=== PATIENT | female | born 1960 | race American Indian/Alaskan Native ===

== ENCOUNTER 2016-09-04 06:50 | Day surgery (SDC) | payer MEDICAID ==
[~2016-09-04 06:50] MED LIST: TETRACAINE 0.5% OS PRN
[2016-09-04] MEDS: VIGAMOX OS SCH ×3 (07:40→07:50)
[2016-09-04] MEDS: AK-Dilate OS SCH ×3 (07:40→07:50)
[2016-09-04] MEDS: MYDRIACYL OS SCH ×3 (07:40→07:50)
--- NOTE | 2016-09-04 08:16 | Anesthesia Day of Surgery ---
Anesthesia Day of Surgery - Day of Surgery Patient Examined: Yes Patient H&P Reviewed: Yes Patient is NPO: Yes
--- NOTE | 2016-09-04 08:19 | Anesthesia Consultation ---
Anesthesia Consult and Med Hx Date of service: 09/04/16 - Airway Anesthetic Teeth Evaluation: Poor ROM Head & Neck: Adequate Mental/Hyoid Distance: Adequate Mallampati Class: Class II Intubation Access Assessment: Probably Good - Pulmonary Exam CTA: Yes - Cardiac Exam Cardiac Exam: RRR - Pre-Operative Health Status ASA Pre-Surgery Classification: ASA3 Proposed Anesthetic Plan: MAC - Pulmonary Hx Smoking: No Hx Asthma: No Hx Respiratory Symptoms: Yes (hx of bronchitis, inhaler this AM) Hx Pneumonia: No Hx Sleep Apnea: Yes (waiting for CPAP) - Cardiovascular System Hx Hypertension: Yes (FOR 14 YRS) Hx Heart Attack/AMI: No - Central Nervous System Hx Seizures: No CVA: No Hx Psychiatric Problems: No - Gastrointestinal Hx Gastroesophageal Reflux Disease: Yes (no meds) - Endocrine Hx Renal Disease: No Hx Liver Disease: No Hx Non-Insulin Dependent Diabetes: 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
[2016-09-04] MEDS ORDERED: SUBLIMAZE ONE (08:22)
[2016-09-04] MEDS ORDERED: VERSED ONE (08:22)
[2016-09-04] MEDS ORDERED: WATER FOR IRRIG STERILE IR ONE (08:25)
--- NOTE | 2016-09-04 08:52 | Operative Report ---
Operative Report Operative Report: PATIENT'S NAME: DATE OF : DATE OF SURGERY: 09/04/2016 PREOPERATIVE DIAGNOSIS: Cataract left eye POSTOPERATIVE DIAGNOSIS: Same OPERATIVE PROCEDURE: Phacoemulsification with intraocular lens implantation, left eye SURGEON: Krista Arredondo M.D. MOLDER FITTING SURGEON: Jane Lens: [id number] 27.0 D ANESTHESIA: Monitored anesthesia care in combination with topical and intracameral anesthesia because of the established specific risk of reflux, arrhythmias, or anxiety attacks associated with ocular manipulation, as well as the difficulty of the rn stars to manage such potentially catastrophic events while simultaneously attempting to complete the surgical procedure and was deemed necessary for the patient's safety to have an Slot Machine Repairer present during the procedure whenever possible. An Slot Machine Repairer was utilized to regulate the intravenous sedation of the patient so the patient was cooperative yet not asleep in order for the patient to successfully maintain fixation of the eye on the operating light of the microscope. COMPLICATIONS: No surgical complications No blood loss. ALLERGIES: Acetaminophen and oxycodone PROGNOSIS: Excellent INDICATIONS FOR SURGERY: The patient is undergoing surgery in the hopes of eliminating or improving these visual difficulties. PROCEDURE: After arriving at the surgery center, the patient was given topical anesthetic and dilating drops, as noted in the record. The patient was then taken into the operating room and given more anesthetic drops. The eyelids , lashes, and lid margins were scrubbed with Betadine solution, and the patient was draped. The Nurse Slot Machine Repairer administered IV sedation and monitored the patient during the procedure. The eye was then fixated with a 0.12, and a stab incision was made in the peripheral clear cornea into the anterior chamber. This was made on my left side. Viscoelastic was next used to fill the anterior chamber. The eye was once again fixated with the 0.12 forceps and a keratome was used make an incision in clear cornea peripherally on my right hand side temporally. The capsule forceps were used to open the central anterior capsule and then make a continuous round capsulotomy. Hydrodissection was carried out utilizing a cannula and balanced salt solution to delineate the cortical material from the capsule and the nucleus from the cortical material. The phaco tip was introduced into the eye and used to remove the anterior cortical material in the area of the capsulotomy. Then the phaco tip was buried into the nucleus, and a chopping instrument was introduced into the eye and used to provide countertraction in the nucleus between this instrument and the phaco tip fracturing the nucleus. This procedure was repeated multiple times, providing multiple small segments of the lens, and then the phaco tip was used to remove each of these segments. An I/A tip was then used to remove the remaining cortex. The anterior chamber was refilled with viscoelastic. An one-piece, acrylic intraocular lens was then placed into an inserting cartridge. The tip of the inserting cartridge was introduced into the keratome incision and into the anterior chamber. The implant was gently advanced through the cartridge and into the eye, where it unfolded, and both haptics were placed in the capsular bag, where it centered nicely and appeared to be well fixated. After placement of the intraocular lens, the I~and~A handpiece was placed back into the eye and used to remove the viscoelastic, including viscoelastic that was behind the optic of the intraocular lens. The anterior chamber was then filled with balanced salt solution, and hydration of the wound was used to cause swelling of the wound and more appropriate watertight closure. When the wound was found to be firm, the patient was asked to comment on how bright the light was. If there was no light perception at all or if the light was substantially dimmer than during the rest of the surgery, the amount of fluid in the eye was decompressed to lower the intraocular pressure until the patient could see the bright light again. This was done to avoid any damage or decreased blood flow to the optic nerve. MEDICATIONS APPLIED AT END OF SURGERY: One drop of Pred Forte and Vigamox The patient was given a shield to wear at night and was instructed not to rub or push on the eye. DISCHARGE SUMMARY: The patient was released in stable condition. The patient and those with the patient were given a written sheet of postoperative instructions and counseling on any abnormal laboratory studies. The patient is to see us tomorrow for follow-up in the office and is to call immediately for any difficulties. Krista Arredondo M.D. Date
--- NOTE | 2016-09-04 08:53 | Short Stay Summary ---
Short Stay Documentation Date of service: 09/04/16 - History H&P: obtained from office - Allergies and Medications Current Medications: Allergies acetaminophen [From Percocet] Allergy (Verified 09/02/16 13:49) CONFUSION oxycodone HCl [From Percocet] Allergy (Verified 09/02/16 13:49) CONFUSION Home Medications Medication Instructions Recorded Confirmed Last Taken Type Insulin Detemir [Levemir Flexpen] 9 units SUB-Q QAM 06/27/13 09/02/16 09/03/16 History Simvastatin 20 mg PO QHS 06/27/13 09/02/16 09/03/16 History amLODIPine [Norvasc] 10 mg PO QDAY 06/27/13 09/02/16 09/04/16 06:00 History Aspirin EC [Aspirin Enteric Coated 81 mg PO QDAY #30 tablet. 08/11/1509/03/16 Rx TAB] Gabapentin [Gralise] 300 mg PO BID 08/11/15 09/02/16 09/04/16 06:00 History Docusate Sodium [Colace] 100 mg PO QDAY 09/02/16 09/02/16 09/03/16 History Ferrous Sulfate [Feosol] 325 mg PO QDAY 09/02/16 09/02/16 09/03/16 History Furosemide [Lasix TAB] 40 mg PO QDAY 09/02/16 09/02/16 09/03/16 History Insulin Lispro [Humalog 100 3 units SQ TIDAC 09/02/16 09/02/16 09/03/16 History UNITS/ML Kwikpen] Losartan [Cozaar] 25 mg PO QDAY 09/02/16 09/02/16 09/04/16 06:00 History Potassium Chloride [K-Dur] 20 meq PO QDAY 09/02/16 09/02/16 09/03/16 History hydrALAZINE [Apresoline] 25 mg PO BID 09/02/16 09/02/16 09/04/16 06:00 History Active Medications Moxifloxacin HCl (Vigamox) 1 drops OS Q5MIN LENNOX Stop: 09/06/16 06:01 Last Admin: 09/04/16 07:50 Dose: 1 drops Phenylephrine HCl (Ak-Dilate) 1 drops OS Q5MIN LENNOX Stop: 09/06/16 06:01 Last Admin: 09/04/16 07:50 Dose: 1 drops Prednisolone Acetate (Pred Forte 1%) 1 drops OS QID LENNOX Tetracaine HCl (Tetracaine 0.5%) 1 drops OS Q5M PRN PRN Reason: Analgesia Last Admin: 09/04/16 07:40 Dose: 1 drops Tropicamide (Mydriacyl) 1 drops OS Q5MIN LENNOX Stop: 09/06/16 06:01 Last Admin: 09/04/16 07:50 Dose: 1 drops - Brief post op/procedure progress note Date of procedure: 09/04/16 Pre-op diagnosis: CATARACT LEFTE EYE Post-op diagnosis: same Procedure: Phacoemulsification with intraocular lens insertion left eye Anesthesia: MAC Surgeon: JERE HERNDON Estimated blood loss: none Pathology: none Condition: stable - Disposition Condition at discharge: Good - Discharge Diagnoses (1) Cataract Status: Resolved Short Stay Discharge Plan Follow up with: PRIMARY CARE, [Primary Care Provider] - 7 Days
[2016-09-04 09:33] VITALS: BP 128/80
[2016-09-04] MEDS ORDERED: PRED FORTE 1% OS SCH (10:00)
--- NOTE | 2016-09-04 10:03 | Post Anesthesia Evaluation ---
- Post Anesthesia Evaluation Patient Participated: Yes Airway Patent: Yes Stable Respiratory Function: Yes Nausea/Vomiting: No Temp > 96.8F: Yes Pain Manageable: Yes Adequeate Hydration: Yes Anesthesia Complications: No Block Receding Appropriately: Not Applicable Patient on Ventilator: No
== END 2016-09-04 09:26 | disposition home or self-care (01) ==
LOC: OR 06:50
DX: E11.36 Type 2 diabetes mellitus with diabetic cataract (principal); G47.30 Sleep apnea, unspecified; I10 Essential (primary) hypertension; K21.9 Gastro-esophageal reflux disease without esophagitis; D64.9 Anemia, unspecified; E66.9 Obesity, unspecified; Z68.41 Body mass index [BMI] 40.0-44.9, adult; Z79.4 Long term (current) use of insulin
CPT/HCPCS: 66984; 82962; J2250; J3010; V2632

== ENCOUNTER 2016-09-18 07:01 | Day surgery (SDC) | payer MEDICAID ==
[~2016-09-18 07:01] MED LIST changes: +TETRACAINE 0.5% OD PRN; -TETRACAINE 0.5% OS PRN
[2016-09-18] MEDS ORDERED: VERSED ONE (09:22)
[2016-09-18] MEDS ORDERED: SUBLIMAZE ONE (09:23)
[2016-09-18] MEDS: AK-Dilate OD SCH ×3 (09:45→09:55)
[2016-09-18] MEDS: MYDRIACYL OD SCH ×3 (09:45→09:55)
[2016-09-18] MEDS: VIGAMOX OD SCH ×3 (09:45→09:55)
--- NOTE | 2016-09-18 09:53 | Anesthesia Consultation ---
Anesthesia Consult and Med Hx Date of service: 09/18/16 - Airway Anesthetic Teeth Evaluation: Chipped ROM Head & Neck: Adequate Mental/Hyoid Distance: Adequate Mallampati Class: Class III Intubation Access Assessment: Possibly Difficult - Pulmonary Exam CTA: Yes - Cardiac Exam Cardiac Exam: RRR - Pre-Operative Health Status ASA Pre-Surgery Classification: ASA3 Proposed Anesthetic Plan: MAC - Pulmonary Hx Respiratory Symptoms: Yes (hx of bronchitis, inhaler this AM) Hx Sleep Apnea: Yes (no cpap) - Cardiovascular System Hx Hypertension: Yes (x 14 yrs) - Gastrointestinal Hx Gastroesophageal Reflux Disease: Yes - Endocrine Hx Non-Insulin Dependent Diabetes: Yes - Hematic Hx Anemia: Yes - Other Systems Hx Obesity: Yes
--- NOTE | 2016-09-18 09:54 | Anesthesia Day of Surgery ---
Anesthesia Day of Surgery - Day of Surgery Patient Examined: Yes Patient H&P Reviewed: Yes Patient is NPO: Yes
[2016-09-18] MEDS ORDERED: NACL P/F VIAL (10 ML) 10 ML ONE (10:09)
--- NOTE | 2016-09-18 11:06 | Operative Report ---
Operative Report Operative Report: PATIENT'S NAME: DATE OF : DATE OF SURGERY: 09/18/2016 PREOPERATIVE DIAGNOSIS: Cataract right eye POSTOPERATIVE DIAGNOSIS: Same OPERATIVE PROCEDURE: Phacoemulsification with intraocular lens implantation, right eye SURGEON: Krista Arredondo M.D. CUSTOMER SERVICES MANAGER SURGEON: Jane Lens: [id number] 26.0 D ANESTHESIA: Monitored anesthesia care in combination with topical and intracameral anesthesia because of the established specific risk of reflux, arrhythmias, or anxiety attacks associated with ocular manipulation, as well as the difficulty of the braided rug maker to manage such potentially catastrophic events while simultaneously attempting to complete the surgical procedure and was deemed necessary for the patient's safety to have an Boarding House Cook present during the procedure whenever possible. An Boarding House Cook was utilized to regulate the intravenous sedation of the patient so the patient was cooperative yet not asleep in order for the patient to successfully maintain fixation of the eye on the operating light of the microscope. COMPLICATIONS: No surgical complications No blood loss. ALLERGIES: Acetaminophen oxycodone PROGNOSIS: Excellent INDICATIONS FOR SURGERY: The patient is undergoing surgery in the hopes of eliminating or improving these visual difficulties. PROCEDURE: After arriving at the surgery center, the patient was given topical anesthetic and dilating drops, as noted in the record. The patient was then taken into the operating room and given more anesthetic drops. The eyelids , lashes, and lid margins were scrubbed with Betadine solution, and the patient was draped. The Nurse Boarding House Cook administered IV sedation and monitored the patient during the procedure. The eye was then fixated with a 0.12, and a stab incision was made in the peripheral clear cornea into the anterior chamber. This was made on my left side. Viscoelastic was next used to fill the anterior chamber. The eye was once again fixated with the 0.12 forceps and a keratome was used make an incision in clear cornea peripherally on my right hand side temporally. The capsule forceps were used to open the central anterior capsule and then make a continuous round capsulotomy. Hydrodissection was carried out utilizing a cannula and balanced salt solution to delineate the cortical material from the capsule and the nucleus from the cortical material. The phaco tip was introduced into the eye and used to remove the anterior cortical material in the area of the capsulotomy. Then the phaco tip was buried into the nucleus, and a chopping instrument was introduced into the eye and used to provide countertraction in the nucleus between this instrument and the phaco tip fracturing the nucleus. This procedure was repeated multiple times, providing multiple small segments of the lens, and then the phaco tip was used to remove each of these segments. An I/A tip was then used to remove the remaining cortex. The anterior chamber was refilled with viscoelastic. An one-piece, acrylic intraocular lens was then placed into an inserting cartridge. The tip of the inserting cartridge was introduced into the keratome incision and into the anterior chamber. The implant was gently advanced through the cartridge and into the eye, where it unfolded, and both haptics were placed in the capsular bag, where it centered nicely and appeared to be well fixated. After placement of the intraocular lens, the I~and~A handpiece was placed back into the eye and used to remove the viscoelastic, including viscoelastic that was behind the optic of the intraocular lens. The anterior chamber was then filled with balanced salt solution, and hydration of the wound was used to cause swelling of the wound and more appropriate watertight closure. When the wound was found to be firm, the patient was asked to comment on how bright the light was. If there was no light perception at all or if the light was substantially dimmer than during the rest of the surgery, the amount of fluid in the eye was decompressed to lower the intraocular pressure until the patient could see the bright light again. This was done to avoid any damage or decreased blood flow to the optic nerve. MEDICATIONS APPLIED AT END OF SURGERY: One drop of Pred Forte and Vigamox The patient was given a shield to wear at night and was instructed not to rub or push on the eye. DISCHARGE SUMMARY: The patient was released in stable condition. The patient and those with the patient were given a written sheet of postoperative instructions and counseling on any abnormal laboratory studies. The patient is to see us tomorrow for follow-up in the office and is to call immediately for any difficulties. Krista Arredondo M.D. Date
--- NOTE | 2016-09-18 11:07 | Short Stay Summary ---
Short Stay Documentation Date of service: 09/18/16 - History H&P: obtained from office - Allergies and Medications Current Medications: Allergies acetaminophen [From Percocet] Allergy (Verified 09/12/16 15:40) CONFUSION oxycodone HCl [From Percocet] Allergy (Verified 09/12/16 15:40) CONFUSION Home Medications Medication Instructions Recorded Confirmed Last Taken Type Insulin Detemir [Levemir Flexpen] 9 units SUB-Q QAM 06/27/13 09/12/16 09/03/16 History Simvastatin 20 mg PO QHS 06/27/13 09/12/16 09/03/16 History amLODIPine [Norvasc] 10 mg PO QDAY 06/27/13 09/12/16 09/04/16 06:00 History Aspirin EC [Aspirin Enteric Coated 81 mg PO QDAY #30 tablet. 08/11/1509/03/16 Rx TAB] Gabapentin [Gralise] 300 mg PO BID 08/11/15 09/12/16 09/04/16 06:00 History Docusate Sodium [Colace] 100 mg PO QDAY 09/02/16 09/12/16 09/03/16 History Ferrous Sulfate [Feosol] 325 mg PO QDAY 09/02/16 09/12/16 09/03/16 History Furosemide [Lasix TAB] 40 mg PO QDAY 09/02/16 09/12/16 09/03/16 History Insulin Lispro [Humalog 100 3 units SQ TIDAC 09/02/16 09/12/16 09/03/16 History UNITS/ML Kwikpen] Losartan [Cozaar] 25 mg PO QDAY 09/02/16 09/12/16 09/04/16 06:00 History Potassium Chloride [K-Dur] 20 meq PO QDAY 09/02/16 09/12/16 09/03/16 History hydrALAZINE [Apresoline] 25 mg PO BID 09/02/16 09/12/16 09/04/16 06:00 History Active Medications Moxifloxacin HCl (Vigamox) 1 drops OD Q5MIN LENNOX Stop: 09/18/16 23:59 Last Admin: 09/18/16 09:55 Dose: 1 drops Phenylephrine HCl (Ak-Dilate) 1 drops OD Q5MIN LENNOX Stop: 09/18/16 23:59 Last Admin: 09/18/16 09:55 Dose: 1 drops Prednisolone Acetate (Pred Forte 1%) 1 drops OD QID LENNOX Stop: 09/18/16 23:59 Tetracaine HCl (Tetracaine 0.5%) 1 drops OD Q5M PRN PRN Reason: Analgesia Stop: 09/18/16 23:59 Last Admin: 09/18/16 09:45 Dose: 1 drops Tropicamide (Mydriacyl) 1 drops OD Q5MIN LENNOX Stop: 09/18/16 23:59 Last Admin: 09/18/16 09:55 Dose: 1 drops - Brief post op/procedure progress note Date of procedure: 09/18/16 Pre-op diagnosis: RIGHT CATARACT Post-op diagnosis: same Procedure: Phacoemulsification with intraocular lens insertion right eye Anesthesia: MAC Surgeon: JERE HERNDON Estimated blood loss: none Pathology: none Condition: stable - Disposition Condition at discharge: Good Disposition: DISCHARGED TO HOME OR SELFCARE - Discharge Diagnoses (1) Cataract Status: Resolved Qualifiers: Cataract type: age-related Age-related cataract type: nuclear Infantile/ juvenile cataract type: I Traumatic cataract type: T Complicated cataract type: C Secondary cataract type: S Laterality: right Qualified Code(s): H25.11 - Age-related nuclear cataract, right eye Short Stay Discharge Plan Follow up with: PRIMARY CAREMD [Primary Care Provider] - 7 Days
[2016-09-18] MEDS ORDERED: PRED FORTE 1% OD SCH ×2 (12:00→14:00)
[2016-09-18 13:09] VITALS: BP 167/79
== END 2016-09-18 07:02 | disposition home or self-care (01) ==
LOC: OR 07:01
DX: E11.36 Type 2 diabetes mellitus with diabetic cataract (principal); I10 Essential (primary) hypertension; K21.9 Gastro-esophageal reflux disease without esophagitis; D64.9 Anemia, unspecified; E66.9 Obesity, unspecified; Z68.41 Body mass index [BMI] 40.0-44.9, adult; Z79.899 Other long term (current) drug therapy
CPT/HCPCS: 66984; 82962; J2250; J3010; V2632

== ENCOUNTER 2020-03-01 10:35 | Emergency (ER) | payer MEDICARE ==
--- NOTE | 2020-03-01 11:30 | Event Note ---
ED Screening Note ED Screening Note: generalized body aches +dysuria lower abd pain N/V no diarrhea PMHx ESRD-on dialysis, M/W/F, went yesterday but couldnt finish treatment allergy: percocet This initial assessment/diagnostic orders/clinical plan/treatment(s) is/are subject to change based on patients health status, clinical progression and re- assessment by fellow clinical providers in the ED. Further treatment and workup at subsequent clinical providers discretion. Patient/guardian urged not to elope from the ED as their condition may be serious if not clinically assessed and managed. Initial orders include: labs, UA
[2020-03-01 12:02] LABS: Basophils % (Auto) 0.5 % (0.0-1.8); Eosinophils % (Auto) 0.5 % (0.0-4.3); Hemoglobin 9.4 gm/dl (10.1-14.3); Lymphocytes # (Auto) 1.6 K/mm3 (1.2-5.4); Mean Corpuscular HGB Conc 34 % (30-34); Mean Corpuscular Volume 90 fl (79-97); Monocytes # (Auto) 0.4 K/mm3 (0.0-0.8); Monocytes % (Auto) 7.9 % (0.0-7.3); Platelet Count 253 K/mm3 (140-440); Red Blood Count 3.12 M/mm3 (3.65-5.03); Red Cell Distribution Width 14.8 % (13.2-15.2)
--- NOTE | 2020-03-01 12:16 | Emergency Department Report ---
ED General Adult HPI - General Chief complaint: Upper Respiratory Infection Stated complaint: CHEST PAINS PUI?: No Time Seen by Provider: 03/01/20 11:28 Source: patient Mode of arrival: Ambulatory Limitations: No Limitations - History of Present Illness Initial comments: Chief complaint: Vomiting, dysuria generalized body aches HPI: This is a 59-year-old female with history of end-stage renal disease on hemodialysis Thursday, diabetes mellitus, hypertension, dyslipidemia, ventral hernia, severe obesity who presents with vomiting generalized malaise body aches dysuria. Patient states she just has not felt w ell since being evaluated in outside hospital [facility]. On Thursday 6 days prior, patient had a syncopal episode a hemodialysis center. She was evaluated at [facility]. She has since felt unwell. Generalized body aches. She has lower back pain. Mild diffuse abdominal pain. She has chest soreness. She does not feel well. She also has burning with urination. Mild vomiting. Patient was unable to complete her entire hemodialysis session on yesterday due to illness. -: Gradual, days(s) (6) Location: chest, back, abdomen Severity scale (0 -10): 5 Quality: aching Consistency: constant Improves with: none Worsens with: none Associated Symptoms: malaise, nausea/vomiting - Related Data Home Medications Medication Instructions Recorded Confirmed Last Taken Insulin Detemir [Levemir Flexpen] 9 units SUB-Q QAM 06/27/13 03/31/17 03/30/17 Gabapentin [Gralise] 300 mg PO TID 08/11/15 03/31/17 03/30/17 Ferrous Sulfate [Feosol 325 MG tab] 325 mg PO QDAY 09/02/16 03/31/17 03/30/17 Furosemide [Lasix TAB] 40 mg PO QDAY 09/02/16 03/31/17 03/30/17 Insulin Lispro [Humalog 100 3 units SQ TIDAC 09/02/16 03/31/17 03/30/17 UNITS/ML Kwikpen] Albuterol Mdi (or & Nicu Only) 2 puff IH QID PRN 03/31/17 03/31/17 03/30/17 [ProAir HFA Inhaler] Atorvastatin Calcium [Lipitor] 40 mg PO DAILY 11/03/31/17 03/30/17 Budesonide/Formoterol Fumarate 10.2 gm IH PRN PRN 03/31/17 03/31/17 03/30/17 [Symbicort 160-4.5 Mcg Inhaler] Esomeprazole Magnesium [Nexium] 40 mg PO DAILY 03/31/17 03/31/17 03/30/17 carvediloL [Coreg] 25 mg PO BID 03/31/17 03/31/17 03/30/17 Previous Rx's Medication Instructions Recorded Last Taken Type Aspirin EC [Halfprin EC] 81 mg PO QDAY #30 tablet. 08/11/15 03/30/17 Rx Diabetic Supplies,Miscell [Enlite 1 each MC BID #100 miscell 04/01/17 Unknown Rx Serter] HYDROcodone/APAP 5-325 [[place] 1 each PO Q6HR PRN #12 tablet 04/01/17 Unknown Rx 5/325] amLODIPine 10 mg PO QDAY #30 tablet 04/01/17 Unknown Rx hydrALAZINE [Apresoline TAB] 10 mg PO TID #90 tablet 04/01/17 Unknown Rx prednisoLONE [Millipred] 10 mg PO QDAY #14 tablet 04/01/17 Unknown Rx Ondansetron [Zofran Odt] 1 tab PO Q8HR PRN #10 tab.rapdis 03/01/20 Unknown Rx cephALEXin [Keflex] 1 tab PO Q8HR 5 Days #15 cap 03/01/20 Unknown Rx Allergies Allergy/AdvReac Type Severity Reaction Status Date / Time acetaminophen [From Percocet] Allergy CONFUSION Verified 09/12/16 15:40 oxycodone HCl [From Percocet] Allergy CONFUSION Verified 09/12/16 15:40 ED Review of Systems ROS: Stated complaint: CHEST PAINS Other details as noted in HPI Comment: All other systems reviewed and negative Constitutional: malaise. denies: chills, diaphoresis Respiratory: denies: cough, shortness of breath Cardiovascular: chest pain Gastrointestinal: abdominal pain, nausea, vomiting, constipation Musculoskeletal: back pain ED Past Medical Hx - Past Medical History Previous Medical History?: Yes Hx Hypertension: Yes Hx Heart Attack/AMI: No Hx Congestive Heart Failure: No Hx Diabetes: Yes Hx Liver Disease: No Hx Renal Disease: Yes (dialysis M, W, F) Hx Seizures: No Hx Asthma: No Additional medical history: hypercholesterolemia - Surgical History Past Surgical History?: Yes Additional Surgical History: hernia surgery, , tubal ligation. cervial mesh placed - Social History Smoking Status: Never Smoker Substance Use Type: None - Medications Home Medications: Home Medications Medication Instructions Recorded Confirmed Last Taken Type Insulin Detemir [Levemir Flexpen] 9 units SUB-Q QAM 06/27/13 03/31/17 03/30/17 History Aspirin EC [Halfprin EC] 81 mg PO QDAY #30 tablet. 08/11/15 03/31/17 03/30/17 Rx Gabapentin [Gralise] 300 mg PO TID 08/11/15 03/31/17 03/30/17 History Ferrous Sulfate [Feosol 325 MG tab] 325 mg PO QDAY 09/02/16 03/31/17 03/30/17 History Furosemide [Lasix TAB] 40 mg PO QDAY 09/02/16 03/31/17 03/30/17 History Insulin Lispro [Humalog 100 3 units SQ TIDAC 09/02/16 03/31/17 03/30/17 History UNITS/ML Kwikpen] Albuterol Mdi (or & Nicu Only) 2 puff IH QID PRN 03/31/17 03/31/17 03/30/17 History [ProAir HFA Inhaler] Atorvastatin Calcium [Lipitor] 40 mg PO DAILY 03/31/17 03/31/17 03/30/17 History Budesonide/Formoterol Fumarate 10.2 gm IH PRN PRN 03/31/17 03/31/17 03/30/17 History [Symbicort 160-4.5 Mcg Inhaler] Esomeprazole Magnesium [Nexium] 40 mg PO DAILY 03/31/17 03/31/17 03/30/17 History carvediloL [Coreg] 25 mg PO BID 03/31/17 03/31/17 03/30/17 History Diabetic Supplies,Miscell [Enlite 1 each MC BID #100 miscell 04/01/17 Unknown Rx Serter] HYDROcodone/APAP 5-325 [[place] 1 each PO Q6HR PRN #12 tablet 04/01/17 Unknown Rx 5/325] amLODIPine 10 mg PO QDAY #30 tablet 11/22/17 Unknown Rx hydrALAZINE [Apresoline TAB] 10 mg PO TID #90 tablet 04/01/17 Unknown Rx prednisoLONE [Millipred] 10 mg PO QDAY #14 tablet 04/01/17 Unknown Rx Ondansetron [Zofran Odt] 1 tab PO Q8HR PRN #10 tab.rapdis 03/01/20 Unknown Rx cephALEXin [Keflex] 1 tab PO Q8HR 5 Days #15 cap 03/01/20 Unknown Rx ED Physical Exam - General Limitations: No Limitations General appearance: alert, in no apparent distress, other (Appears well, appears comfortable.) - Head Head exam: Present: atraumatic, normocephalic - Eye Eye exam: Present: normal appearance - ENT ENT exam: Present: mucous membranes moist - Neck Neck exam: Present: normal inspection, full ROM - Respiratory Respiratory exam: Present: normal lung sounds bilaterally. Absent: respiratory distress, wheezes, rales, rhonchi - Cardiovascular Cardiovascular Exam: Present: regular rate, normal rhythm, normal heart sounds. Absent: systolic murmur, diastolic murmur, rubs, gallop - GI/Abdominal GI/Abdominal exam: Present: soft, normal bowel sounds. Absent: distended, tenderness, guarding, rebound - Extremities Exam Extremities exam: Present: normal inspection - Neurological Exam Neurological exam: Present: alert, oriented X3 - Psychiatric Psychiatric exam: Present: normal affect, normal mood - Skin Skin exam: Present: warm, dry, intact, normal color. Absent: rash ED Course Vital Signs 03/01/20 10:47 Temperature 99.0 F Pulse Rate 74 Respiratory 20 Rate Blood Pressure 126/57 O2 Sat by Pulse 96 Oximetry ED Medical Decision Making - Lab Data Result diagrams: 03/01/20 11:42 03/01/20 11:42 - Medical Decision Making This is a 5-year-old female who presents with diffuse body aches no discrete area of pain. She also has dysuria and reports vomiting with constipation. Patient has normal vital signs. She appears well and comfortable. Urinary tract infection is a consideration. Viral syndrome such as COVID-19 is a consideration. CBC without leukocytosis. Normal potassium. Urinalysis without evidence of infection but contaminated sample. Differential diagnosis includes viral syndrome such as COVID-19 infection, influenza. I have prescribed antibiotics for dysuria. Patient received prescription for Zofran cephalexin. Critical care attestation.: If time is entered above; I have spent that time in minutes in the direct care of this critically ill patient, excluding procedure time. ED Disposition Clinical Impression: End stage renal disease, Viral syndrome Disposition: TO HOME OR SELFCARE Is pt being admited?: No Does the pt Need Aspirin: No Condition: Stable Prescriptions: cephALEXin [Keflex] 1 tab PO Q8HR 5 Days #15 cap Ondansetron [Zofran Odt] 1 tab PO Q8HR PRN #10 tab.rapdis PRN Reason: Nausea
[2020-03-01 12:24] LABS: Albumin 3.6 g/dL (3.9-5)
[2020-03-01 12:30] LABS: Bacteria,Urine 1+ /HPF (Negative); Bilirubin,Urine NEG (Negative); Blood,Urine SM (Negative); Color,Urine Yellow (Yellow)
[2020-03-01 16:28] VITALS: BP 151/52
== END 2020-03-01 15:30 | disposition home or self-care (01) ==
LOC: ED 10:35
DX: E11.22 Type 2 diabetes mellitus with diabetic chronic kidney disease (principal); I12.0 Hypertensive chronic kidney disease with stage 5 chronic kidney disease or end stage renal disease; N18.6 End stage renal disease; B34.9 Viral infection, unspecified; Z99.2 Dependence on renal dialysis; Z98.51 Tubal ligation status; Z98.890 Other specified postprocedural states; Z79.4 Long term (current) use of insulin; Z79.899 Other long term (current) drug therapy; Z88.8 Allergy status to other drugs, medicaments and biological substances
CPT/HCPCS: 36415; 80053; 81001; 85025